=== PATIENT | male | born 1960 | race Caucasian/White ===

== ENCOUNTER 2016-09-12 09:57 | Observation (INO) | payer OTHER, MEDICAID ==
[~2016-09-12] VITALS: Ht 175.3 cm; Wt 90.7 kg
[~2016-09-12 09:57] MED LIST: AMIO200T33 PO; AMLO5CAP; BENAZEPRIL HCTZ; CEPH-37; HYDR-2035; RANI300C7; TAGAMENT; WARF5TAB PO
[2016-09-12 11:40] LABS: Basophils # (auto) 0 uL; Basophils % (auto) 0.2 % (0.0-2.0); CONDITION Y; Eosinophils # (auto) 0 uL; Eosinophils % (auto) 0.3 % (0.0-7.0); Hematocrit 48.2 % (41.0-53.0); Hemoglobin 16.5 g/dL (13.5-17.5); Lymphocytes # (auto) 0.7 uL; Lymphocytes % (auto) 7.4 % (10.0-50.0); Mean Corpuscular Hemoglobin 31.2 pg (28.0-32.0); Mean Corpuscular Hgb Conc. 34.3 g/dL (32.0-36.0); Mean Platelet Volume 8.8 fL (7.4-10.4); Monocytes # (auto) 0.7 uL; Neutrophils # (auto) 7.8 uL; Neutrophils % (auto) 84.1 % (37.0-80.0); Platelet Count (auto) 267 10^3/uL (140-450); Red Cell Distribution Width 13.3 % (11.6-16.0); White Blood Cell 9.2 10^3/uL (4.4-10.8)
[2016-09-12 11:53] LABS: Urine RBC None Seen /hpf (0 - 3)
[2016-09-12 12:02] LABS: Albumin 3.8 g/dL (3.4-5.0); BUN/Creatinine Ratio 8.9; Bilirubin, Total 0.4 mg/dL (0.2-1.0); Calcium 8.7 mg/dL (8.5-10.1); Potassium 3.9 mmol/L (3.5-5.1); Total Protein 7.5 g/dL (6.4-8.2)
[2016-09-12 12:08] LABS: Urine Bilirubin Negative (Negative); Urine Blood Negative /uL (Negative); Urine Color Yellow (Yellow); Urine Glucose Normal (Normal); Urine Ketone Negative (Negative); Urine Mucus FEW (None Seen); Urine Nitrite Negative (Negative); Urine Urobilinogen Normal (Negative)
[2016-09-12] MEDS ORDERED: SODIUM CHLORIDE 0.9% 1,000 ML IVB ONE (13:20)
[2016-09-12 13:58] LABS: Magnesium 2.4 mg/dL (1.6-2.6)
[2016-09-12 14:04] LABS: INR 2.12 (0.9-1.15); Partial Thromboplastin Time 37.8 sec (22.64-33.71)
[2016-09-12 14:53] LABS: Prothrombin Time 23.3 sec (9.37-12.3)
[2016-09-12] MEDS ORDERED: LOPERAMIDE HCL 2 MG CAP PO ONE (15:15)
[2016-09-12 15:29] VITALS: BP 109/65
== END 2016-09-12 17:45 | disposition home or self-care (01) | DRG 392 ==
LOC: ER 09:57 → OVERFLOW 13:24 → ER 17:45
PROVIDERS: ADMIT Family Medicine; ATTEND Family Medicine
DX: K52.9 Noninfective gastroenteritis and colitis, unspecified (principal); I10 Essential (primary) hypertension; Z86.718 Personal history of other venous thrombosis and embolism; Z98.890 Other specified postprocedural states
CPT/HCPCS: 36415; 71010; 74176; 80053; 81001; 82150; 83690; 83735; 85025; 85610; 85730; 87493; 96360; 99285; G0378; J7030

== ENCOUNTER 2016-12-10 22:42 | Emergency (ER) | payer OTHER, MEDICAID ==
[~2016-12-10] VITALS: Ht 175.3 cm; Wt 102.1 kg
[2016-12-10 23:38] LABS: Basophils # (auto) 0 uL; Basophils % (auto) 0.6 % (0.0-2.0); Eosinophils # (auto) 0.2 uL; Hematocrit 46.1 % (41.0-53.0); Lymphocytes # (auto) 1.8 uL; Lymphocytes % (auto) 21.4 % (10.0-50.0); Mean Corpuscular Hemoglobin 31.8 pg (28.0-32.0); Mean Corpuscular Hgb Conc. 34.6 g/dL (32.0-36.0); Mean Corpuscular Volume 91.9 fL (80.0-100.0); Mean Platelet Volume 8.4 fL (6.9-10.8); Monocytes # (auto) 0.7 uL; Monocytes % (auto) 7.7 % (0.0-12.0); Neutrophils # (auto) 5.9 uL; Neutrophils % (auto) 68.3 % (37.0-80.0); Nucleated Red Blood Cells % 0.1 %; Platelet Count (auto) 291 10^3/uL (140-450); Red Cell Distribution Width 13.4 % (11.8-14.3); White Blood Cell 8.6 10^3/uL (4.4-10.8)
[2016-12-10 23:55] LABS: INR 1.57 (0.9-1.15); Partial Thromboplastin Time 32.4 sec (22.64-33.71); Prothrombin Time 17.2 sec (9.37-12.3)
[2016-12-11 00:01] LABS: B-Type Natriuretic Peptide 19.5 pg/mL (0-100); Temperature: 21.5 C (20.0-25.0)
[2016-12-11 00:05] LABS: Urine Bilirubin Negative (Negative); Urine Blood Negative /uL (Negative); Urine Color Yellow (Yellow); Urine Glucose Normal (Normal); Urine Ketone Negative (Negative); Urine Nitrite Negative (Negative); Urine RBC None Seen /hpf (0 - 3); Urine Urobilinogen Normal (Negative)
[2016-12-11 00:16] LABS: Albumin 3.9 g/dL (3.4-5.0); Alkaline Phosphatase 78 U/L (45-117); Anion Gap 6 (5-15); Aspartate Aminotransferase 22 U/L (15-37); BUN/Creatinine Ratio 16.5; Bilirubin, Total 0.4 mg/dL (0.2-1.0); Blood Urea Nitrogen 16 mg/dL (7-18); Calcium 8.2 mg/dL (8.5-10.1); Carbon Dioxide 27 mmol/L (21-32); Chloride 105 mmol/L (98-107); GFR African American 104 mL/min; GFR Non-African American 86 mL/min; Glucose 108 mg/dL (74-106); Magnesium 2.5 mg/dL (1.6-2.6); Potassium 4.4 mmol/L (3.5-5.1); Sodium 138 mmol/L (136-145); Total Protein 7.6 g/dL (6.4-8.2)
[2016-12-11 04:14] VITALS: BP 134/90
== END 2016-12-11 06:01 | disposition home or self-care (01) ==
LOC: ER 22:45
DX: K21.9 Gastro-esophageal reflux disease without esophagitis (principal); I10 Essential (primary) hypertension; Z79.01 Long term (current) use of anticoagulants; Z79.899 Other long term (current) drug therapy
CPT/HCPCS: 36415; 71010; 76705; 80053; 80307; 81001; 83735; 83880; 84484; 85025; 85610; 85730; 93005

== ENCOUNTER 2017-03-22 16:32 | Emergency (ER) | payer MEDICARE, MEDICAID ==
[~2017-03-22] VITALS: Ht 160 cm; Wt 101.2 kg
[2017-03-22 16:41] VITALS: BP 135/83
== END 2017-03-22 19:18 | disposition home or self-care (01) ==
LOC: ER 16:35
DX: G44.209 Tension-type headache, unspecified, not intractable (principal); I10 Essential (primary) hypertension; R00.2 Palpitations; Z86.711 Personal history of pulmonary embolism; Z79.01 Long term (current) use of anticoagulants; Z79.899 Other long term (current) drug therapy
CPT/HCPCS: 70450

== ENCOUNTER 2018-01-14 18:03 | Inpatient (IN) | payer MEDICARE, MEDICAID ==
[~2018-01-14] VITALS: Ht 175.3 cm; Wt 102.2 kg
[2018-01-14 18:39] LABS: Basophils # (auto) 0.1 uL; Basophils % (auto) 0.8 % (0.0-2.0); Eosinophils # (auto) 0.1 uL; Eosinophils % (auto) 1.2 % (0.0-7.0); Hemoglobin 17.1 g/dL (13.5-17.5); Lymphocytes # (auto) 1.8 uL; Lymphocytes % (auto) 20.9 % (10.0-50.0); Mean Corpuscular Hemoglobin 31.3 pg (28.0-32.0); Mean Corpuscular Hgb Conc. 34.1 g/dL (32.0-36.0); Mean Corpuscular Volume 91.6 fL (80.0-100.0); Monocytes # (auto) 0.6 uL; Monocytes % (auto) 6.4 % (0.0-12.0); Neutrophils # (auto) 6.1 uL; Neutrophils % (auto) 70.7 % (37.0-80.0); Platelet Count (auto) 292 10^3/uL (140-450); Red Blood Cells 5.46 10^6/uL (4.5-5.90); Red Cell Distribution Width 13.3 % (11.8-14.3); White Blood Cell 8.6 10^3/uL (4.4-10.8)
[2018-01-14 18:54] LABS: INR 2.17 (0.9-1.15); Prothrombin Time 22.2 sec (9.27-12.13)
[2018-01-14 18:57] LABS: Alanine Aminotransferase 32 U/L (16-61); Albumin 3.9 g/dL (3.4-5.0); Anion Gap 11 (5-15); Aspartate Aminotransferase 18 U/L (15-37); BUN/Creatinine Ratio 13.5; Blood Urea Nitrogen 15 mg/dL (7-18); Calcium 8.4 mg/dL (8.5-10.1); Carbon Dioxide 23 mmol/L (21-32); Chloride 107 mmol/L (98-107); GFR African American 88 mL/min; GFR Non-African American 73 mL/min; Glucose 99 mg/dL (74-106); Magnesium 2.1 mg/dL (1.6-2.6); Potassium 4.5 mmol/L (3.5-5.1); Sodium 141 mmol/L (136-145)
[2018-01-14 19:02] LABS: Alkaline Phosphatase 81 U/L (45-117); Bilirubin, Total 0.4 mg/dL (0.2-1.0); Total Protein 7.8 g/dL (6.4-8.2)
[2018-01-14] MEDS ORDERED: MORPHINE SULFATE 4 MG/ML SYR/VIAL IV ONE (23:00)
[2018-01-14] MEDS ORDERED: NITROGLYCERIN 0.4 MG SL TAB SL ONE (23:00)
[2018-01-14] MEDS ORDERED: ASPirin-EC 325mg tab PO ONE (23:00)
[2018-01-14 23:38] LABS: Urine WBC None Seen /hpf (0 - 3)
[2018-01-14 23:53] LABS: Urine Bacteria NONE SEEN /hpf (None Seen); Urine Blood Negative /uL (Negative); Urine Specific Gravity 1.014 (1.001-1.035)
[2018-01-15] MEDS ORDERED: IOHEXOL 350 MG/ML 100ML IJ ONE (00:45)
[2018-01-15] MEDS ORDERED: ONDANSETRON HCL 4 MG/2 ML VIAL IV PRN (06:30)
[2018-01-15] MEDS ORDERED: HYDROcodone-ACET 5/325MG TAB PO PRN (06:30)
[2018-01-15] MEDS ORDERED: ACETAMINOPHEN 500 MG TAB PO PRN (06:30)
[2018-01-15 09:30] VITALS: BP 128/79
[2018-01-15] MEDS ORDERED: PANTOPRAZOLE 40 MG TAB PO SCH (10:00)
[2018-01-15] MEDS ORDERED: WARF4TAB33 PO (11:09)
[2018-01-15] MEDS ORDERED: AMLO10CA42 PO (11:09)
[2018-01-15 13:00] VITALS: BP 115/82
[2018-01-15] MEDS ORDERED: amLODIPine BESYLATE 5 MG TAB PO ONE (13:15)
[2018-01-15 16:35] VITALS: BP 144/84
[2018-01-15] MEDS ORDERED: WARFARIN SODIUM 5 MG TAB PO SCH (17:00)
[2018-01-16] MEDS ORDERED: amLODIPine BESYLATE 5 MG TAB PO SCH (10:00)
[2018-01-16] MEDS ORDERED: METOPROLOL SUCCINATE XL 50 MG TAB PO SCH (10:00)
[2018-01-16] MEDS ORDERED: BENAZEPRIL HCL 10 MG TAB PO SCH (10:00)
== END 2018-01-15 17:18 | disposition left against medical advice (07) | DRG 310 ==
LOC: ER 18:03 → TELE 18:04 → TELE-CENTR 01-15 08:48
PROVIDERS: ADMIT Nurse Practitioner Family; ATTEND Family Medicine
DX: I49.9 Cardiac arrhythmia, unspecified (principal); I10 Essential (primary) hypertension; Z96.659 Presence of unspecified artificial knee joint; K21.9 Gastro-esophageal reflux disease without esophagitis; Z53.21 Procedure and treatment not carried out due to patient leaving prior to being seen by health care provider; E66.9 Obesity, unspecified; Z79.01 Long term (current) use of anticoagulants; Z86.711 Personal history of pulmonary embolism; Z86.718 Personal history of other venous thrombosis and embolism; Z68.33 Body mass index [BMI] 33.0-33.9, adult
CPT/HCPCS: 36415; 71046; 71275; 80053; 81001; 83735; 84443; 84484; 85025; 85610; 85730; 93306; 99291; G0378